=== PATIENT | male | born 1990 | race Asian ===

== ENCOUNTER 2023-09-07 21:15 | Emergency (ER) | payer MEDICAID ==
[~2023-09-07] VITALS: Ht 172.7 cm; Wt 72.6 kg
[2023-09-07 21:36] VITALS: BP_SYST 118; PULSE 99; RESP 16; TEMP 99.5; O2SAT 94
[2023-09-07 23:13] LABS: HEMATOCRIT 38.9 % (36-54); HEMOGLOBIN 13.3 g/dL (14.0-18.0); MEAN CORPUSCULAR HEMOGLOBIN 30 pg (27-31); MEAN CORPUSCULAR HGB CONC 34 % (32-36); MEAN CORPUSCULAR VOLUME 88 fL (79.0-98.0); PLATELET COUNT (AUTO) 176 K/uL (130-430); RED BLOOD CELL COUNT(AUTO) 4.41 MIL/uL (4.2-6.2); RED CELL DISTRIBUTION WIDTH 14.4 % (9.0-15.0)
[2023-09-07 23:36] LABS: CALCIUM 9.3 mg/dL (8.4-11.0); CREATININE 0.9 mg/dL (0.55-1.30); POTASSIUM 3.7 mmol/L (3.5-5.1)
[2023-09-07 23:51] LABS: BAND % (MANUAL) 17 % (0-6); BASOPHILS % (MANUAL) 0 % (0-2); EOSINOPHILS % (MANUAL) 4 % (0-7); LYMPHOCYTES % (MANUAL) 7 % (20-46); MONOCYTES % (MANUAL) 10 % (0-11)
[2023-09-07 23:52] LABS: PLATELET ESTIMATE ADEQUATE (ADEQUATE); STOMATOCYTES FEW
[2023-09-08] MEDS ORDERED: AUG875 PO (00:17)
[2023-09-08] MEDS: AMOXICILLIN/POTASSIUM CLAV 875 MG TABLET PO ONE (00:31)
== END 2023-09-08 00:36 | disposition home or self-care (01) ==
LOC: SED 21:15
DX: J20.9 Acute bronchitis, unspecified (principal); Z20.822 Contact with and (suspected) exposure to COVID-19
CPT/HCPCS: 36415; 71045; 80048; 85007; 85027; 99284